=== PATIENT | male | born 1965 | race Caucasian/White ===

== ENCOUNTER 2018-03-16 19:52 | Inpatient (IN) | payer OTHER ==
[2018-03-16 22:07] LABS: ADD MAN DIFF? NO
[2018-03-16 22:09] LABS: BASOPHILS % 0.5 % (0.0-2.0); EOSINOPHILS # 0.2 10^3/ul (0.0-0.5); EOSINOPHILS % 2.6 % (0.0-7.0); HEMATOCRIT 37.4 % (42.0-52.0); HEMOGLOBIN 12.3 g/dl (14.0-18.0); LYMPHOCYTES # 1.7 10^3/ul (0.8-2.9); LYMPHOCYTES % 28.5 % (15.0-51.0); MEAN CORPUSCULAR HEMOGLOBIN 27.2 pg (29.0-33.0); MEAN CORPUSCULAR HGB CONC 32.9 g/dl (32.0-37.0); MEAN CORPUSCULAR VOLUME 82.7 fl (82.0-101.0); MONOCYTE # 0.4 10^3/ul (0.3-0.9); MONOCYTES % 7.5 % (0.0-11.0); NEUTROPHIL # 3.5 10^3/ul (1.6-7.5); NEUTROPHILS % 60.4 % (39.0-77.0); PLATELET COUNT 209 10^3/UL (140-415); RED BLOOD COUNT 4.52 10^6/ul (4.70-6.10); RED CELL DISTRIBUTION WIDTH 12.2 % (11.5-14.5)
[2018-03-16 22:09] LABS: WHITE BLOOD COUNT 5.9 10^3/ul (4.8-10.8)
[2018-03-16] MEDS: SOD CHLORIDE 0.9% 500 ML IV (22:10)
[2018-03-16] MEDS: PIPER-TAZO 3.375 GM IV (PMX) 100 ML IVPB (22:15)
[2018-03-16 22:20] LABS: ADD UMIC YES; UR ASCORBIC ACID NEGATIVE (NEGATIVE); UR BILIRUBIN (Dip) NEGATIVE (NEGATIVE); UR BLOOD (Dip) 1+ mg/dL (NEGATIVE); UR CLARITY CLEAR (CLEAR); UR COLOR COLORLESS (YELLOW); UR GLUCOSE (Dip) 3+ mg/dL (NEGATIVE); UR KETONES (Dip) NEGATIVE (NEGATIVE); UR LEUKOCYTE ESTERASE (Dip) NEGATIVE Leu/ul (NEGATIVE); UR NITRITE (Dip) NEGATIVE (NEGATIVE); UR RBC 0 /HPF (0-5); UR SPECIFIC GRAVITY (Dip) 1.023 (1.003-1.030); UR TOTAL PROTEIN (Dip) NEGATIVE (NEGATIVE); UR UROBILINOGEN (Dip) NEGATIVE (NEGATIVE); UR WBC 0 /HPF (0-5)
[2018-03-16 22:26] LABS: ALANINE AMINOTRANSFERASE 8 IU/L (13-69); ALBUMIN 4.3 g/dl (3.3-4.9); ALBUMIN/GLOBULIN RATIO 0.95; ALKALINE PHOSPHATASE 106 IU/L (42-121); ANION GAP 12 (5-13); ASPARTATE AMINO TRANSFERASE 15 IU/L (15-46); BILIRUBIN,INDIRECT 0.4 mg/dl (0-1.1); BILIRUBIN,TOTAL 0.4 mg/dl (0.2-1.3); BLOOD UREA NITROGEN 36 mg/dl (7-20); CALCIUM 9.5 mg/dl (8.4-10.2); CARBON DIOXIDE 30 mmol/L (21-31); CHLORIDE 95 mmol/L (97-110); CREATININE 1.38 mg/dl (0.61-1.24); Estimated GFR 54 mL/min (>60); LIPASE 149 U/L (23-300); POTASSIUM 5.3 mmol/L (3.5-5.1); SODIUM 137 mmol/L (135-144); TOTAL PROTEIN 8.8 g/dl (6.1-8.1)
[2018-03-16] MEDS ORDERED: morphine 2 MG INJ IV (22:30)
[2018-03-16] MEDS ORDERED: DOCUSATE SODIUM 100 MG CAP PO (22:30)
[2018-03-16] MEDS ORDERED: ONDANSETRON 4 MG INJ IV (22:30)
[2018-03-16] MEDS ORDERED: NACL 0.9% 3 ML SYG IV (22:30)
[2018-03-16] MEDS ORDERED: ACETAMINOPHEN 325 MG TAB PO (22:30)
[2018-03-16] MEDS ORDERED: BISACODYL (EC) 5 MG TAB PO (22:30)
[2018-03-16] MEDS ORDERED: HYDROCODONE/APAP (5/325) TAB PO (22:30)
[2018-03-16 22:34] LABS: GLUCOSE 600 mg/dl (70-220)
[2018-03-16] MEDS: VANCOMYCIN 1 GM (PMX) 250 ML IVPB (23:08)
[2018-03-16] MEDS ORDERED: VANCOMYCIN IV PER PHARMACY XX (23:30)
[2018-03-16] MEDS ORDERED: GLUCAGON 1 MG INJ IM (23:45)
[2018-03-16] MEDS ORDERED: DEXTROSE 50% 50 ML SYRINGE IV ×2 (23:45)
[2018-03-16] MEDS ORDERED: GLUCOSE GEL 15 GRAM TUBE PO ×2 (23:45)
[2018-03-16] MEDS ORDERED: GLUCOSE GEL 15 GRAM TUBE BUCCAL (23:45)
[2018-03-17] MEDS ORDERED: PIPER-TAZO 2.25 GM (PMX) 50 ML IVPB
[2018-03-17] MEDS ORDERED: PIPER-TAZO 3.375 GM IV (PMX) 100 ML IVPB
[2018-03-17] MEDS ORDERED: HEPARIN 5,000 UNIT/0.5 ML VIAL (00:45)
[2018-03-17] MEDS: SOD CHLORIDE 0.9% 1,000 ML IV (00:47)
[2018-03-17] MEDS: HEPARIN 5,000 UNIT/1 ML VIAL SC ×2 (00:48→05:12)
[2018-03-17] MEDS: INSULIN REGULAR, HUMAN 100 UNIT/1 ML 3ML VIAL IV (00:57)
[2018-03-17] MEDS ORDERED: INSULIN GLARGINE [LANTus] (100 UNITS/ML) SYG SC (01:00)
[2018-03-17 01:21] LABS: ERYTHROCYTE SEDIMENTATION RATE 75 mm/Hr (0-20)
[2018-03-17] MEDS: ACCU-CHEK XX ×4 (02:00→21:00)
[2018-03-17] MEDS: hydrALAzine 20 MG INJ IV ×2 (02:40→22:42)
[2018-03-17] MEDS: INSULIN GLARGINE [LANTus] (100 UNITS/ML) SYG SC ×2 (02:41→20:23)
[2018-03-17] MEDS: VANCOMYCIN 1 GM 250 ML IVPB ×2 (05:29→18:26)
[2018-03-17 06:14] LABS: ADD MAN DIFF? NO
[2018-03-17 06:27] LABS: BASOPHILS % 0.6 % (0.0-2.0); EOSINOPHILS # 0.2 10^3/ul (0.0-0.5); EOSINOPHILS % 2.9 % (0.0-7.0); HEMATOCRIT 33.4 % (42.0-52.0); LYMPHOCYTES # 1.7 10^3/ul (0.8-2.9); LYMPHOCYTES % 31.6 % (15.0-51.0); MEAN CORPUSCULAR HEMOGLOBIN 27.3 pg (29.0-33.0); MEAN CORPUSCULAR HGB CONC 32.9 g/dl (32.0-37.0); MEAN CORPUSCULAR VOLUME 82.9 fl (82.0-101.0); MEAN PLATELET VOLUME 10.6 fl (7.4-10.4); MONOCYTE # 0.5 10^3/ul (0.3-0.9); NEUTROPHIL # 2.9 10^3/ul (1.6-7.5); NEUTROPHILS % 55.1 % (39.0-77.0); PLATELET COUNT 198 10^3/UL (140-415); RED BLOOD COUNT 4.03 10^6/ul (4.70-6.10); RED CELL DISTRIBUTION WIDTH 12.3 % (11.5-14.5)
[2018-03-17 06:27] LABS: WHITE BLOOD COUNT 5.3 10^3/ul (4.8-10.8)
[2018-03-17 06:59] LABS: ALANINE AMINOTRANSFERASE 15 IU/L (13-69); ALBUMIN 3.7 g/dl (3.3-4.9); ALBUMIN/GLOBULIN RATIO 0.97; ALKALINE PHOSPHATASE 86 IU/L (42-121); ANION GAP 7 (5-13); ASPARTATE AMINO TRANSFERASE 11 IU/L (15-46); BILIRUBIN,INDIRECT 0.4 mg/dl (0-1.1); BILIRUBIN,TOTAL 0.4 mg/dl (0.2-1.3); BLOOD UREA NITROGEN 28 mg/dl (7-20); CALCIUM 9.1 mg/dl (8.4-10.2); CARBON DIOXIDE 28 mmol/L (21-31); CHLORIDE 104 mmol/L (97-110); CHOL/HDL RATIO 6.4 RATIO; CHOLESTEROL 149 mg/dl (100-200); CREATININE 1.11 mg/dl (0.61-1.24); Estimated GFR > 60 mL/min (>60); GLUCOSE 246 mg/dl (70-220); HDL CHOLESTEROL 23 mg/dl (28-71); LDL CHOLESTEROL,CALCULATED 102 mg/dl; MAGNESIUM 2.1 mg/dl (1.7-2.5); POTASSIUM 4.8 mmol/L (3.5-5.1); SODIUM 139 mmol/L (135-144); TOTAL PROTEIN 7.5 g/dl (6.1-8.1); TRIGLYCERIDES 121 mg/dl (0-149)
[2018-03-17] MEDS: PIPER-TAZO 3.375 GM IV (PMX) 100 ML IVPB (07:58)
[2018-03-17] MEDS: INSULIN ASPART [NOVOLOG] 3 ML PEN SC ×6 (09:54→20:22)
[2018-03-17 10:51] LABS: HEMOGLOBIN A1C 12.1 % (0-5.9)
[2018-03-17] MEDS: LEVOFLOXACIN 500MG/D5W (PMX) 100 ML IVPB (13:04)
[2018-03-17] MEDS: LINAGLIPTIN 5 MG TABLET PO (13:04)
[2018-03-17 22:06] LABS: CREATININE,URINE RANDOM 31.67 mg/dl (20-370)
[2018-03-17 22:07] LABS: SODIUM,URINE RANDOM 52 mmol/L (30-90)
[2018-03-18] MEDS: ACCU-CHEK XX ×4 (02:25→21:00)
[2018-03-18] MEDS: VANCOMYCIN 1 GM 250 ML IVPB ×2 (05:15→18:23)
[2018-03-18] MEDS: INSULIN ASPART [NOVOLOG] 3 ML PEN SC ×7 (08:17→20:41)
[2018-03-18] MEDS: ENOXAPARIN 40 MG/0.4 ML SYG SC (08:52)
[2018-03-18] MEDS: LINAGLIPTIN 5 MG TABLET PO (08:53)
[2018-03-18] MEDS: SODIUM HYPOCHLORITE (1/40) 1 APPLIC BTL IRR (08:55)
[2018-03-18 09:11] LABS: BLOOD UREA NITROGEN 21 mg/dl (7-20)
[2018-03-18 09:11] LABS: CREATININE 1.07 mg/dl (0.61-1.24)
[2018-03-18] MEDS: LEVOFLOXACIN 500MG/D5W (PMX) 100 ML IVPB (11:03)
[2018-03-18] MEDS: AMLODIPINE 5 MG TAB PO (12:30)
[2018-03-18] MEDS: LISINOPRIL 20 MG TAB PO (12:30)
[2018-03-18] MEDS: ASPIRIN (EC) 81 MG TAB PO (12:30)
[2018-03-18] MEDS ORDERED: AMLODIPINE 2.5 MG TAB PO (12:30)
[2018-03-18] MEDS: IODIXANOL LOCM 100 ML BTL (14:06)
[2018-03-18] MEDS: SOD CHLORIDE 0.9% 100 ML (14:06)
[2018-03-18] MEDS: IODIXANOL LOCM 50 ML BTL (14:07)
[2018-03-18] MEDS: SOD CHLORIDE 0.9% 1,000 ML IV (14:55)
[2018-03-18 15:21] LABS: CREATININE, RANDOM URINE 33 mg/dL (20-320); MICROALBUMIN 14.9 mg/dL; MICROALBUMIN/CREATININE RATIO 452 (<30)
[2018-03-18] MEDS ORDERED: morphine LIQ (10 MG/5 ML) CUP PO (16:30)
[2018-03-18 17:49] LABS: VANCOMYCIN,TROUGH 12.2 ug/ml (10.0-20.0)
[2018-03-18 18:55] LABS: C-REACTIVE PROTEIN < 0.5 mg/dl (0.0-0.9)
[2018-03-18 19:34] LABS: ERYTHROCYTE SEDIMENTATION RATE 35 mm/Hr (0-20)
[2018-03-18] MEDS: INSULIN GLARGINE [LANTus] (100 UNITS/ML) SYG SC (20:39)
[2018-03-19] MEDS: ACCU-CHEK XX ×5 (02:00→20:39)
[2018-03-19] MEDS: VANCOMYCIN 1 GM 250 ML IVPB ×2 (05:21→17:47)
[2018-03-19 06:53] LABS: ADD MAN DIFF? NO
[2018-03-19 06:59] LABS: BASOPHILS % 0.3 % (0.0-2.0); EOSINOPHILS # 0.2 10^3/ul (0.0-0.5); EOSINOPHILS % 2.3 % (0.0-7.0); HEMATOCRIT 34.6 % (42.0-52.0); HEMOGLOBIN 11.4 g/dl (14.0-18.0); LYMPHOCYTES # 1.8 10^3/ul (0.8-2.9); LYMPHOCYTES % 26.9 % (15.0-51.0); MEAN CORPUSCULAR HEMOGLOBIN 27.7 pg (29.0-33.0); MEAN CORPUSCULAR HGB CONC 32.9 g/dl (32.0-37.0); MEAN CORPUSCULAR VOLUME 84.2 fl (82.0-101.0); MEAN PLATELET VOLUME 9.9 fl (7.4-10.4); MONOCYTE # 0.5 10^3/ul (0.3-0.9); MONOCYTES % 7.2 % (0.0-11.0); NEUTROPHIL # 4.1 10^3/ul (1.6-7.5); NEUTROPHILS % 62.2 % (39.0-77.0); PLATELET COUNT 195 10^3/UL (140-415); RED BLOOD COUNT 4.11 10^6/ul (4.70-6.10); RED CELL DISTRIBUTION WIDTH 12.5 % (11.5-14.5)
[2018-03-19 06:59] LABS: WHITE BLOOD COUNT 6.6 10^3/ul (4.8-10.8)
[2018-03-19 07:40] LABS: ANION GAP 10 (5-13); BLOOD UREA NITROGEN 18 mg/dl (7-20); CALCIUM 9.3 mg/dl (8.4-10.2); CARBON DIOXIDE 27 mmol/L (21-31); CHLORIDE 101 mmol/L (97-110); CREATININE 1.07 mg/dl (0.61-1.24); Estimated GFR > 60 mL/min (>60); GLUCOSE 148 mg/dl (70-220); MAGNESIUM 1.9 mg/dl (1.7-2.5); PHOSPHORUS 4.4 mg/dl (2.5-4.9); POTASSIUM 4.1 mmol/L (3.5-5.1); SODIUM 138 mmol/L (135-144)
[2018-03-19] MEDS: INSULIN ASPART [NOVOLOG] 3 ML PEN SC ×7 (08:00→20:34)
[2018-03-19] MEDS: LINAGLIPTIN 5 MG TABLET PO (08:45)
[2018-03-19] MEDS: ASPIRIN (EC) 81 MG TAB PO (08:45)
[2018-03-19] MEDS: LISINOPRIL 20 MG TAB PO (08:45)
[2018-03-19] MEDS: AMLODIPINE 5 MG TAB PO (08:45)
[2018-03-19] MEDS: SODIUM HYPOCHLORITE (1/40) 1 APPLIC BTL IRR (08:46)
[2018-03-19] MEDS: ENOXAPARIN 40 MG/0.4 ML SYG SC (08:46)
[2018-03-19] MEDS: LEVOFLOXACIN 500MG/D5W (PMX) 100 ML IVPB (10:24)
[2018-03-19 15:27] LABS: CREATININE, RANDOM URINE 33 mg/dL (20-320); MICROALBUMIN 15.2 mg/dL; MICROALBUMIN/CREATININE RATIO 461 (<30)
[2018-03-19] MEDS: INSULIN GLARGINE [LANTus] (100 UNITS/ML) SYG SC (20:36)
[2018-03-20] MEDS: ACCU-CHEK XX ×5 (02:00→21:00)
[2018-03-20] MEDS ORDERED: LEVOFLOXACIN 500 MG TAB (04:06)
[2018-03-20] MEDS: VANCOMYCIN 1 GM 250 ML IVPB ×2 (05:51→18:07)
[2018-03-20] MEDS: LEVOFLOXACIN 500 MG TAB PO (05:51)
[2018-03-20] MEDS: INSULIN ASPART [NOVOLOG] 3 ML PEN SC ×7 (08:00→20:40)
[2018-03-20] MEDS: AMLODIPINE 10 MG TAB PO (08:21)
[2018-03-20] MEDS: ASPIRIN (EC) 81 MG TAB PO (08:21)
[2018-03-20] MEDS: LINAGLIPTIN 5 MG TABLET PO (08:22)
[2018-03-20] MEDS: LISINOPRIL 20 MG TAB PO ×2 (08:22→20:49)
[2018-03-20] MEDS: ENOXAPARIN 40 MG/0.4 ML SYG SC (08:25)
[2018-03-20] MEDS: SODIUM HYPOCHLORITE (1/40) 1 APPLIC BTL IRR (08:32)
[2018-03-20] MEDS ORDERED: LISINOPRIL 20 MG TAB PO ×2 (09:00)
[2018-03-20] MEDS: INSULIN GLARGINE [LANTus] (100 UNITS/ML) SYG SC (20:42)
[2018-03-21] MEDS: ACCU-CHEK XX ×5 (02:00→21:50)
[2018-03-21 05:43] LABS: ADD MAN DIFF? NO
[2018-03-21 05:47] LABS: BASOPHILS % 0.5 % (0.0-2.0); EOSINOPHILS # 0.2 10^3/ul (0.0-0.5); EOSINOPHILS % 2.9 % (0.0-7.0); HEMATOCRIT 34.2 % (42.0-52.0); HEMOGLOBIN 11.1 g/dl (14.0-18.0); LYMPHOCYTES # 1.9 10^3/ul (0.8-2.9); LYMPHOCYTES % 30.1 % (15.0-51.0); MEAN CORPUSCULAR HEMOGLOBIN 27.3 pg (29.0-33.0); MEAN CORPUSCULAR HGB CONC 32.5 g/dl (32.0-37.0); MEAN CORPUSCULAR VOLUME 84.2 fl (82.0-101.0); MEAN PLATELET VOLUME 10.1 fl (7.4-10.4); MONOCYTE # 0.5 10^3/ul (0.3-0.9); MONOCYTES % 8.1 % (0.0-11.0); NEUTROPHIL # 3.6 10^3/ul (1.6-7.5); NEUTROPHILS % 57.4 % (39.0-77.0); PLATELET COUNT 203 10^3/UL (140-415); RED BLOOD COUNT 4.06 10^6/ul (4.70-6.10); RED CELL DISTRIBUTION WIDTH 12.8 % (11.5-14.5)
[2018-03-21 05:47] LABS: WHITE BLOOD COUNT 6.3 10^3/ul (4.8-10.8)
[2018-03-21 06:27] LABS: ANION GAP 10 (5-13); BLOOD UREA NITROGEN 20 mg/dl (7-20); CALCIUM 9.1 mg/dl (8.4-10.2); CARBON DIOXIDE 28 mmol/L (21-31); CHLORIDE 103 mmol/L (97-110); CREATININE 1.17 mg/dl (0.61-1.24); Estimated GFR > 60 mL/min (>60); GLUCOSE 120 mg/dl (70-220); PHOSPHORUS 4.9 mg/dl (2.5-4.9); POTASSIUM 4.1 mmol/L (3.5-5.1); SODIUM 141 mmol/L (135-144)
[2018-03-21] MEDS: VANCOMYCIN 1 GM 250 ML IVPB ×2 (06:47→16:20)
[2018-03-21] MEDS: INSULIN ASPART [NOVOLOG] 3 ML PEN SC ×7 (07:59→20:30)
[2018-03-21] MEDS: ASPIRIN (EC) 81 MG TAB PO (08:01)
[2018-03-21] MEDS: LINAGLIPTIN 5 MG TABLET PO (08:01)
[2018-03-21] MEDS: ENOXAPARIN 40 MG/0.4 ML SYG SC (08:01)
[2018-03-21] MEDS: LISINOPRIL 20 MG TAB PO ×2 (08:03→20:25)
[2018-03-21] MEDS: AMLODIPINE 10 MG TAB PO (08:04)
[2018-03-21] MEDS: SODIUM HYPOCHLORITE (1/40) 1 APPLIC BTL IRR (09:21)
[2018-03-21] MEDS: hydrALAzine 20 MG INJ IV (12:32)
[2018-03-21] MEDS: LIDOCAINE 1% (MPF) 5 ML VIAL SC (15:22)
[2018-03-21] MEDS: INSULIN GLARGINE [LANTus] (100 UNITS/ML) SYG SC (20:31)
== END 2018-03-21 21:30 | disposition home health service (06) | DRG 623 ==
LOC: PP2 22:01 → FTE 19:52
PROVIDERS: Family Medicine
PROC: 0JBQ0ZZ Excision of Right Foot Subcutaneous Tissue and Fascia, Open Approach (ICD-10-PCS; principal; 2018-03-17)
DX: E11.621 Type 2 diabetes mellitus with foot ulcer (principal); L03.115 Cellulitis of right lower limb; N17.9 Acute kidney failure, unspecified; E66.9 Obesity, unspecified; Z91.14 Patient's other noncompliance with medication regimen; I10 Essential (primary) hypertension; Z68.30 Body mass index [BMI] 30.0-30.9, adult; E11.42 Type 2 diabetes mellitus with diabetic polyneuropathy; L84 Corns and callosities; B95.62 Methicillin resistant Staphylococcus aureus infection as the cause of diseases classified elsewhere; B95.4 Other streptococcus as the cause of diseases classified elsewhere; E55.9 Vitamin D deficiency, unspecified; E78.5 Hyperlipidemia, unspecified; E11.65 Type 2 diabetes mellitus with hyperglycemia; E11.51 Type 2 diabetes mellitus with diabetic peripheral angiopathy without gangrene
CPT/HCPCS: 36415; 36569; 71045; 73630; 73630-LT; 73706; 73718; 76937; 80048; 80053; 80061; 80202; 81001; 81003; 82043; 82306; 82565; 82652; 82962; 83036; 83690; 83735; 84100; 84155; 84300; 84443; 84520; 85025; 85651; 86140; 87040; 87070; 93922; 99285-25

== ENCOUNTER 2018-03-26 11:30 | Emergency (ER) | payer OTHER | END 2018-03-26 13:56 | disposition home or self-care (01) | LOC: FTE 11:30 | DX: T82.898A Other specified complication of vascular prosthetic devices, implants and grafts, initial encounter (principal); Y82.8 Other medical devices associated with adverse incidents; Z79.4 Long term (current) use of insulin; Z79.82 Long term (current) use of aspirin | CPT/HCPCS: 99281; Z7502 ==

== ENCOUNTER 2018-10-28 14:36 | Day surgery (SDC) | payer OTHER ==
[2018-10-28] MEDS: CEFAZOLIN 2 GM/50 ML (PMX) 50 ML IVPB (06:00)
[2018-10-28] MEDS ORDERED: SOD CHLORIDE 0.9% 1,000 ML IV (16:00)
[2018-10-28] MEDS ORDERED: FENTAnyl 50 MCG/ML VIAL IV ×2 (17:00)
[2018-10-28] MEDS ORDERED: OXYCODONE/ACETAMINOPHEN (5/325) TAB PO (17:00)
[2018-10-28] MEDS ORDERED: HYDROmorphONE 1 MG/5 ML IV SYRINGE IV ×2 (17:00)
[2018-10-28] MEDS ORDERED: hydrALAzine 20 MG INJ IV (17:00)
[2018-10-28] MEDS ORDERED: METOCLOPRAMIDE 10 MG INJ IV (17:00)
[2018-10-28] MEDS ORDERED: LABETALOL HCL 20MG INJ IV (17:00)
[2018-10-28] MEDS ORDERED: EPHEDrine 25 MG/5 ML SYG IV (17:00)
[2018-10-28] MEDS ORDERED: CEFAZOLIN 1 GM INJ (17:01)
[2018-10-28] MEDS ORDERED: PROPOFOL 20 ML ×2 (17:01→17:21)
[2018-10-28] MEDS ORDERED: ROPIVACAINE 0.5 % 30 ML VIAL (17:01)
[2018-10-28] MEDS ORDERED: FENTAnyl 50 MCG/ML VIAL (17:01)
[2018-10-28] MEDS ORDERED: MIDAZOLAM 1 MG/ML 2 ML INJ (17:01)
[2018-10-28] MEDS ORDERED: ONDANSETRON 4 MG INJ (17:20)
[2018-10-28] MEDS ORDERED: KETOROLAC 30 MG INJ (17:20)
[2018-10-28] MEDS ORDERED: METOCLOPRAMIDE 10 MG INJ (17:20)
[2018-10-28] MEDS ORDERED: DEXAMETHASONE 4 MG/ML 5 ML INJ (17:20)
[2018-10-28] MEDS: POLYMYXIN/BACITRACIN 1L IRRIG (17:23)
[2018-10-28] MEDS ORDERED: DEXTROSE 50% 50 ML SYRINGE (18:06)
[2018-10-28] MEDS: DEXTROSE 50% 50 ML SYRINGE IV (18:09)
[2018-10-28] MEDS: ONDANSETRON 4 MG INJ IV (18:45)
== END 2018-10-28 19:19 | disposition home or self-care (01) ==
LOC: SDS 14:36
DX: E11.621 Type 2 diabetes mellitus with foot ulcer (principal); M20.11 Hallux valgus (acquired), right foot; M19.071 Primary osteoarthritis, right ankle and foot; E11.42 Type 2 diabetes mellitus with diabetic polyneuropathy; I10 Essential (primary) hypertension; E78.5 Hyperlipidemia, unspecified; Z79.4 Long term (current) use of insulin; Z79.82 Long term (current) use of aspirin
CPT/HCPCS: 14040; 73620; 82962; 87070; 88305

== ENCOUNTER 2018-11-26 10:39 | Inpatient (IN) | payer OTHER ==
[2018-11-26 13:16] LABS: ADD MAN DIFF? NO
[2018-11-26] MEDS: KETOROLAC 15 MG INJ IV (13:20)
[2018-11-26] MEDS: SOD CHLORIDE 0.9% 500 ML IV (13:20)
[2018-11-26] MEDS: PIPER-TAZO 3.375 GM IV (PMX) 100 ML IVPB ×2 (13:20→20:54)
[2018-11-26 13:21] LABS: BASOPHILS % 0.3 % (0.0-2.0); EOSINOPHILS # 0.1 10^3/ul (0.0-0.5); EOSINOPHILS % 0.6 % (0.0-7.0); HEMOGLOBIN 11.3 g/dl (14.0-18.0); LYMPHOCYTES # 1.9 10^3/ul (0.8-2.9); LYMPHOCYTES % 17.6 % (15.0-51.0); MEAN CORPUSCULAR HGB CONC 33.2 g/dl (32.0-37.0); MEAN CORPUSCULAR VOLUME 87.2 fl (82.0-101.0); MEAN PLATELET VOLUME 10.5 fl (7.4-10.4); MONOCYTE # 1.4 10^3/ul (0.3-0.9); MONOCYTES % 13.2 % (0.0-11.0); NEUTROPHIL # 7.4 10^3/ul (1.6-7.5); NEUTROPHILS % 67.7 % (39.0-77.0); PLATELET COUNT 175 10^3/UL (140-415)
[2018-11-26 13:21] LABS: WHITE BLOOD COUNT 10.9 10^3/ul (4.8-10.8)
[2018-11-26 13:38] LABS: ALANINE AMINOTRANSFERASE 23 IU/L (13-69); ALBUMIN 4.2 g/dl (3.3-4.9); ALBUMIN/GLOBULIN RATIO 1.05; ALKALINE PHOSPHATASE 86 IU/L (42-121); ANION GAP 9 (5-13); ASPARTATE AMINO TRANSFERASE 16 IU/L (15-46); BILIRUBIN,INDIRECT 0.7 mg/dl (0-1.1); BILIRUBIN,TOTAL 0.7 mg/dl (0.2-1.3); CARBON DIOXIDE 27 mmol/L (21-31); CHLORIDE 100 mmol/L (97-110); CREATININE 1.46 mg/dl (0.61-1.24); Estimated GFR 50 mL/min (>60); GLUCOSE 205 mg/dl (70-220); LIPASE 15 U/L (23-300); POTASSIUM 4.4 mmol/L (3.5-5.1); SODIUM 136 mmol/L (135-144); TOTAL PROTEIN 8.2 g/dl (6.1-8.1)
[2018-11-26 13:41] LABS: BLOOD UREA NITROGEN 23 mg/dl (7-20); CALCIUM 9.5 mg/dl (8.4-10.2)
[2018-11-26 13:42] LABS: INR 1.06; PROTIME 13.9 Sec (11.9-14.9); PT RATIO 1.1
[2018-11-26 13:43] LABS: PARTIAL THROMBOPLASTIN TIME 34.5 Sec (23.0-35.0)
[2018-11-26] MEDS: VANCOMYCIN 1 GM (PMX) 250 ML IVPB (14:29)
[2018-11-26] MEDS ORDERED: MAGNESIUM HYDROXIDE 30ML CUP PO (15:30)
[2018-11-26] MEDS ORDERED: ONDANSETRON 4 MG INJ IV (15:30)
[2018-11-26] MEDS ORDERED: ALBUTEROL/IPRATROPIUM (NEB) 3 ML AMP HHN (15:30)
[2018-11-26] MEDS ORDERED: NACL 0.9% 3 ML SYG IV (15:30)
[2018-11-26] MEDS ORDERED: NITROGLYCERIN (SL) 0.4 MG TAB SL (15:30)
[2018-11-26] MEDS ORDERED: VANCOMYCIN IV PER PHARMACY XX (15:30)
[2018-11-26] MEDS ORDERED: HYDROCODONE/APAP (5/325) TAB PO (15:30)
[2018-11-26] MEDS ORDERED: DOCUSATE SODIUM 100 MG CAP PO (15:30)
[2018-11-26] MEDS ORDERED: morphine 2 MG INJ IV (15:30)
[2018-11-26] MEDS ORDERED: LORAZEPAM 2 MG INJ IV (15:30)
[2018-11-26] MEDS ORDERED: ACETAMINOPHEN 325 MG TAB PO (15:30)
[2018-11-26] MEDS ORDERED: hydrALAzine 20 MG INJ IV (15:30)
[2018-11-26 16:28] LABS: INR 1.15; PROTIME 14.8 Sec (11.9-14.9); PT RATIO 1.2
[2018-11-26 16:29] LABS: PARTIAL THROMBOPLASTIN TIME 39.2 Sec (23.0-35.0)
[2018-11-26 16:35] LABS: LACTIC ACID 0.7 mmol/L (0.5-2.0)
[2018-11-26 16:45] LABS: FREE T4 (FREE THYROXINE) 1.05 ng/dl (0.64-1.79)
[2018-11-26] MEDS: INSULIN ASPART [NOVOLOG] 3 ML PEN SC ×2 (17:00→20:55)
[2018-11-26] MEDS: SOD CHLORIDE 0.45% 1,000 ML IV (17:57)
[2018-11-26] MEDS: VANCOMYCIN 1 GM in 250 ML IVPB (17:58)
[2018-11-26 20:05] LABS: LACTIC ACID 0.8 mmol/L (0.5-2.0)
[2018-11-26] MEDS: ACCU-CHEK XX (20:31)
[2018-11-26] MEDS ORDERED: INSULIN GLARGINE [LANtus] 3 ML PEN SC (21:00)
[2018-11-26] MEDS ORDERED: PENDING SANTYL ORDER FOR WOUND CARE XX (21:00)
[2018-11-26] MEDS: HEPARIN 5,000 UNIT/1 ML VIAL SC (21:06)
[2018-11-26 21:19] LABS: ADD UMIC YES; UR ASCORBIC ACID 40 mg/dL (NEGATIVE); UR BILIRUBIN (Dip) NEGATIVE (NEGATIVE); UR BLOOD (Dip) NEGATIVE (NEGATIVE); UR CLARITY CLEAR (CLEAR); UR COLOR YELLOW (YELLOW); UR GLUCOSE (Dip) NEGATIVE (NEGATIVE); UR KETONES (Dip) NEGATIVE (NEGATIVE); UR LEUKOCYTE ESTERASE (Dip) NEGATIVE Leu/ul (NEGATIVE); UR NITRITE (Dip) NEGATIVE (NEGATIVE); UR RBC 1 /HPF (0-5); UR SPECIFIC GRAVITY (Dip) 1.012 (1.003-1.030); UR TOTAL PROTEIN (Dip) 1+ mg/dl (NEGATIVE); UR UROBILINOGEN (Dip) NEGATIVE (NEGATIVE); UR WBC 0 /HPF (0-5)
[2018-11-26 21:30] LABS: CREATININE,URINE RANDOM 78.43 mg/dl (20-370)
[2018-11-26 21:30] LABS: SODIUM,URINE RANDOM 99 mmol/L (30-90)
[2018-11-26] MEDS: INSULIN GLARGINE [LANTus] (100 UNITS/ML) SYG SC (21:35)
[2018-11-27] MEDS: INSULIN ASPART [NOVOLOG] 3 ML PEN SC ×6 (01:00→21:00)
[2018-11-27] MEDS: PIPER-TAZO 3.375 GM IV (PMX) 100 ML IVPB ×5 (01:02→23:54)
[2018-11-27 03:40] LABS: ADD MAN DIFF? NO
[2018-11-27 03:58] LABS: HEMOGLOBIN A1C 7.1 % (0-5.9)
[2018-11-27 04:01] LABS: BASOPHILS % 0.3 % (0.0-2.0); EOSINOPHILS # 0.2 10^3/ul (0.0-0.5); HEMATOCRIT 30.6 % (42.0-52.0); HEMOGLOBIN 10.1 g/dl (14.0-18.0); LYMPHOCYTES # 1.6 10^3/ul (0.8-2.9); LYMPHOCYTES % 20.8 % (15.0-51.0); MEAN CORPUSCULAR HEMOGLOBIN 28.6 pg (29.0-33.0); MEAN CORPUSCULAR VOLUME 86.7 fl (82.0-101.0); MEAN PLATELET VOLUME 10.4 fl (7.4-10.4); MONOCYTE # 0.9 10^3/ul (0.3-0.9); NEUTROPHIL # 4.9 10^3/ul (1.6-7.5); NEUTROPHILS % 64.4 % (39.0-77.0); PLATELET COUNT 162 10^3/UL (140-415); RED BLOOD COUNT 3.53 10^6/ul (4.70-6.10); RED CELL DISTRIBUTION WIDTH 11.9 % (11.5-14.5)
[2018-11-27 04:01] LABS: WHITE BLOOD COUNT 7.5 10^3/ul (4.8-10.8)
[2018-11-27 04:03] LABS: ANION GAP 7 (5-13); BLOOD UREA NITROGEN 17 mg/dl (7-20); CALCIUM 8.9 mg/dl (8.4-10.2); CARBON DIOXIDE 26 mmol/L (21-31); CHLORIDE 105 mmol/L (97-110); CREATININE 1.17 mg/dl (0.61-1.24); Estimated GFR > 60 mL/min (>60); GLUCOSE 105 mg/dl (70-220); PHOSPHORUS 3.7 mg/dl (2.5-4.9); POTASSIUM 4.1 mmol/L (3.5-5.1); SODIUM 138 mmol/L (135-144)
[2018-11-27 04:03] LABS: LACTIC ACID 0.6 mmol/L (0.5-2.0)
[2018-11-27 04:04] LABS: CHOLESTEROL 149 mg/dl (100-200)
[2018-11-27 04:04] LABS: CHOL/HDL RATIO 6.2 RATIO; HDL CHOLESTEROL 24 mg/dl (28-71); LDL CHOLESTEROL,CALCULATED 100 mg/dl; TRIGLYCERIDES 124 mg/dl (0-149)
[2018-11-27 04:33] LABS: THYROID STIMULATING HORMONE 0.756 MIU/L (0.465-4.680)
[2018-11-27] MEDS: SOD CHLORIDE 0.45% 1,000 ML IV (06:12)
[2018-11-27 06:51] LABS: LACTIC ACID 1.5 mmol/L (0.5-2.0)
[2018-11-27] MEDS: VANCOMYCIN 1 GM 250 ML IVPB ×3 (06:51→19:57)
[2018-11-27] MEDS: AMLODIPINE 10 MG TAB PO (08:31)
[2018-11-27] MEDS: HEPARIN 5,000 UNIT/1 ML VIAL SC ×2 (10:28→21:32)
[2018-11-27] MEDS: NPH, HUMAN INSULIN ISOPHANE 3ML VIAL SC (10:46)
[2018-11-27 12:11] LABS: LACTIC ACID 1.2 mmol/L (0.5-2.0)
[2018-11-27] MEDS: DEXTROSE 5%-0.45% NACL 1,000 ML IV (12:28)
[2018-11-27] MEDS ORDERED: FENTAnyl 50 MCG/ML VIAL (17:18)
[2018-11-27] MEDS ORDERED: MIDAZOLAM 1 MG/ML 2 ML INJ (17:18)
[2018-11-27] MEDS ORDERED: LIDOCAINE 2% (SDV) 5 ML INJ (17:57)
[2018-11-27] MEDS ORDERED: CEFAZOLIN 1 GM INJ (17:57)
[2018-11-27] MEDS ORDERED: PROPOFOL 20 ML (17:57)
[2018-11-27] MEDS ORDERED: DIPHENHYDRAMINE 50 MG INJ IV (18:30)
[2018-11-27] MEDS ORDERED: ONDANSETRON 4 MG INJ IV (18:30)
[2018-11-27] MEDS ORDERED: MEPERIDINE 25 MG INJ IV (18:30)
[2018-11-27] MEDS ORDERED: HYDROmorphONE 1 MG/5 ML IV SYRINGE IV ×2 (18:30)
[2018-11-27] MEDS ORDERED: FENTAnyl 50 MCG/ML VIAL IV (18:30)
[2018-11-27] MEDS: INSULIN GLARGINE [LANTus] (100 UNITS/ML) SYG SC ×2 (21:00→23:47)
[2018-11-28] MEDS: DEXTROSE 5%-0.45% NACL 1,000 ML IV (01:20)
[2018-11-28] MEDS: ACCU-CHEK XX (02:00)
[2018-11-28] MEDS: PIPER-TAZO 3.375 GM IV (PMX) 100 ML IVPB (05:51)
[2018-11-28 05:54] LABS: ADD MAN DIFF? NO
[2018-11-28 05:57] LABS: BASOPHILS % 0.4 % (0.0-2.0); EOSINOPHILS # 0.2 10^3/ul (0.0-0.5); EOSINOPHILS % 3.2 % (0.0-7.0); HEMATOCRIT 34.7 % (42.0-52.0); LYMPHOCYTES # 1.7 10^3/ul (0.8-2.9); LYMPHOCYTES % 23.8 % (15.0-51.0); MEAN CORPUSCULAR HEMOGLOBIN 27.9 pg (29.0-33.0); MEAN CORPUSCULAR HGB CONC 31.7 g/dl (32.0-37.0); MEAN CORPUSCULAR VOLUME 88.1 fl (82.0-101.0); MEAN PLATELET VOLUME 10.1 fl (7.4-10.4); MONOCYTE # 0.9 10^3/ul (0.3-0.9); MONOCYTES % 12.2 % (0.0-11.0); NEUTROPHIL # 4.2 10^3/ul (1.6-7.5); NEUTROPHILS % 60.1 % (39.0-77.0); PLATELET COUNT 207 10^3/UL (140-415); RED BLOOD COUNT 3.94 10^6/ul (4.70-6.10); RED CELL DISTRIBUTION WIDTH 12.1 % (11.5-14.5)
[2018-11-28 06:23] LABS: ANION GAP 10 (5-13); BLOOD UREA NITROGEN 11 mg/dl (7-20); CALCIUM 9.6 mg/dl (8.4-10.2); CARBON DIOXIDE 27 mmol/L (21-31); CHLORIDE 106 mmol/L (97-110); CREATININE 1.32 mg/dl (0.61-1.24); Estimated GFR 56 mL/min (>60); GLUCOSE 162 mg/dl (70-220); POTASSIUM 4.2 mmol/L (3.5-5.1); SODIUM 143 mmol/L (135-144)
[2018-11-28 07:19] LABS: VANCOMYCIN,TROUGH 15.6 ug/ml (10.0-20.0)
[2018-11-28] MEDS: INSULIN ASPART [NOVOLOG] 3 ML PEN SC ×4 (08:32→21:23)
[2018-11-28] MEDS: NPH, HUMAN INSULIN ISOPHANE 3ML VIAL SC (08:33)
[2018-11-28] MEDS: AMLODIPINE 10 MG TAB PO (09:43)
[2018-11-28] MEDS: VANCOMYCIN 1 GM 250 ML IVPB (10:02)
[2018-11-28] MEDS: HEPARIN 5,000 UNIT/1 ML VIAL SC ×2 (10:04→21:22)
[2018-11-28] MEDS: CLINDAMYCIN 900 MG (PMX) 50 ML IVPB ×2 (14:09→21:19)
[2018-11-28 15:22] LABS: CREATININE, RANDOM URINE 78 mg/dL (20-320); MICROALBUMIN 21.8 mg/dL; MICROALBUMIN/CREATININE RATIO 279 (<30)
[2018-11-28] MEDS: INSULIN GLARGINE [LANTus] (100 UNITS/ML) SYG SC (21:22)
[2018-11-29] MEDS: ACCU-CHEK XX (02:00)
[2018-11-29] MEDS: CLINDAMYCIN 900 MG (PMX) 50 ML IVPB ×3 (05:06→22:50)
[2018-11-29 06:42] LABS: ADD MAN DIFF? NO
[2018-11-29 07:03] LABS: WHITE BLOOD COUNT 4.1 10^3/ul (4.8-10.8)
[2018-11-29 07:03] LABS: EOSINOPHILS # 0.2 10^3/ul (0.0-0.5); EOSINOPHILS % 4.8 % (0.0-7.0); HEMOGLOBIN 10.4 g/dl (14.0-18.0); LYMPHOCYTES # 1.5 10^3/ul (0.8-2.9); LYMPHOCYTES % 35.7 % (15.0-51.0); MEAN CORPUSCULAR HEMOGLOBIN 28.4 pg (29.0-33.0); MEAN CORPUSCULAR HGB CONC 32.5 g/dl (32.0-37.0); MEAN CORPUSCULAR VOLUME 87.4 fl (82.0-101.0); MEAN PLATELET VOLUME 9.9 fl (7.4-10.4); MONOCYTE # 0.6 10^3/ul (0.3-0.9); MONOCYTES % 13.3 % (0.0-11.0); NEUTROPHIL # 1.8 10^3/ul (1.6-7.5); NEUTROPHILS % 44.5 % (39.0-77.0); PLATELET COUNT 180 10^3/UL (140-415); RED BLOOD COUNT 3.66 10^6/ul (4.70-6.10)
[2018-11-29 07:28] LABS: ANION GAP 7 (5-13); BLOOD UREA NITROGEN 16 mg/dl (7-20); CALCIUM 9.5 mg/dl (8.4-10.2); CARBON DIOXIDE 28 mmol/L (21-31); CHLORIDE 105 mmol/L (97-110); CREATININE 1.23 mg/dl (0.61-1.24); Estimated GFR > 60 mL/min (>60); GLUCOSE 135 mg/dl (70-220); POTASSIUM 3.8 mmol/L (3.5-5.1); SODIUM 140 mmol/L (135-144)
[2018-11-29] MEDS: AMLODIPINE 10 MG TAB PO (08:20)
[2018-11-29] MEDS: INSULIN ASPART [NOVOLOG] 3 ML PEN SC ×4 (08:22→20:23)
[2018-11-29] MEDS: HEPARIN 5,000 UNIT/1 ML VIAL SC ×2 (08:22→20:21)
[2018-11-29] MEDS: NPH, HUMAN INSULIN ISOPHANE 3ML VIAL SC (10:15)
[2018-11-29] MEDS ORDERED: GLUCAGON 1 MG INJ IM (13:00)
[2018-11-29] MEDS ORDERED: GLUCOSE GEL 15 GRAM TUBE PO ×2 (13:00)
[2018-11-29] MEDS ORDERED: DEXTROSE 50% 50 ML SYRINGE IV ×2 (13:00)
[2018-11-29] MEDS ORDERED: GLUCOSE GEL 15 GRAM TUBE BUCCAL (13:00)
[2018-11-29] MEDS: INSULIN GLARGINE [LANTus] (100 UNITS/ML) SYG SC (20:22)
[2018-11-30] MEDS: ACCU-CHEK XX (02:00)
[2018-11-30] MEDS: CLINDAMYCIN 900 MG (PMX) 50 ML IVPB (05:32)
[2018-11-30 05:50] LABS: ADD MAN DIFF? NO
[2018-11-30 05:55] LABS: WHITE BLOOD COUNT 4.3 10^3/ul (4.8-10.8)
[2018-11-30 05:55] LABS: BASOPHILS % 0.9 % (0.0-2.0); EOSINOPHILS # 0.2 10^3/ul (0.0-0.5); EOSINOPHILS % 4.4 % (0.0-7.0); HEMOGLOBIN 10.3 g/dl (14.0-18.0); LYMPHOCYTES # 1.5 10^3/ul (0.8-2.9); LYMPHOCYTES % 35.4 % (15.0-51.0); MEAN CORPUSCULAR HEMOGLOBIN 28.4 pg (29.0-33.0); MEAN CORPUSCULAR HGB CONC 32.2 g/dl (32.0-37.0); MEAN CORPUSCULAR VOLUME 88.2 fl (82.0-101.0); MEAN PLATELET VOLUME 9.8 fl (7.4-10.4); MONOCYTE # 0.5 10^3/ul (0.3-0.9); MONOCYTES % 10.8 % (0.0-11.0); NEUTROPHILS % 47.6 % (39.0-77.0); PLATELET COUNT 211 10^3/UL (140-415); RED BLOOD COUNT 3.63 10^6/ul (4.70-6.10); RED CELL DISTRIBUTION WIDTH 11.9 % (11.5-14.5)
[2018-11-30 06:16] LABS: ANION GAP 6 (5-13); BLOOD UREA NITROGEN 24 mg/dl (7-20); CALCIUM 9.5 mg/dl (8.4-10.2); CARBON DIOXIDE 31 mmol/L (21-31); CHLORIDE 102 mmol/L (97-110); CREATININE 1.26 mg/dl (0.61-1.24); Estimated GFR 59 mL/min (>60); GLUCOSE 132 mg/dl (70-220); POTASSIUM 4.2 mmol/L (3.5-5.1); SODIUM 139 mmol/L (135-144)
[2018-11-30] MEDS: AMLODIPINE 10 MG TAB PO (09:00)
[2018-11-30] MEDS: HEPARIN 5,000 UNIT/1 ML VIAL SC ×2 (09:02→21:18)
[2018-11-30] MEDS: INSULIN ASPART [NOVOLOG] 3 ML PEN SC ×4 (09:04→21:00)
[2018-11-30] MEDS: NPH, HUMAN INSULIN ISOPHANE 3ML VIAL SC (11:16)
[2018-11-30] MEDS: DAPTOMYCIN 600 MG in SOD CHLORIDE 0.9% 100 ML IVPB (16:37)
[2018-11-30] MEDS: INSULIN GLARGINE [LANTus] (100 UNITS/ML) SYG SC (21:18)
[2018-12-01] MEDS: ACCU-CHEK XX (02:00)
[2018-12-01 05:03] LABS: ADD MAN DIFF? NO
[2018-12-01 05:08] LABS: BASOPHILS % 0.5 % (0.0-2.0); EOSINOPHILS # 0.3 10^3/ul (0.0-0.5); EOSINOPHILS % 3.8 % (0.0-7.0); HEMATOCRIT 34.5 % (42.0-52.0); HEMOGLOBIN 11.4 g/dl (14.0-18.0); LYMPHOCYTES # 2.2 10^3/ul (0.8-2.9); LYMPHOCYTES % 32.8 % (15.0-51.0); MEAN CORPUSCULAR HEMOGLOBIN 28.6 pg (29.0-33.0); MEAN CORPUSCULAR VOLUME 86.7 fl (82.0-101.0); MEAN PLATELET VOLUME 9.7 fl (7.4-10.4); MONOCYTE # 0.6 10^3/ul (0.3-0.9); NEUTROPHIL # 3.5 10^3/ul (1.6-7.5); NEUTROPHILS % 52.2 % (39.0-77.0); PLATELET COUNT 221 10^3/UL (140-415); RED BLOOD COUNT 3.98 10^6/ul (4.70-6.10); RED CELL DISTRIBUTION WIDTH 12.1 % (11.5-14.5)
[2018-12-01 05:08] LABS: WHITE BLOOD COUNT 6.6 10^3/ul (4.8-10.8)
[2018-12-01 05:29] LABS: ANION GAP 8 (5-13); BLOOD UREA NITROGEN 27 mg/dl (7-20); CALCIUM 9.6 mg/dl (8.4-10.2); CARBON DIOXIDE 28 mmol/L (21-31); CHLORIDE 102 mmol/L (97-110); CREATININE 1.22 mg/dl (0.61-1.24); Estimated GFR > 60 mL/min (>60); GLUCOSE 134 mg/dl (70-220); POTASSIUM 4.2 mmol/L (3.5-5.1); SODIUM 138 mmol/L (135-144)
[2018-12-01 05:30] LABS: CREATINE KINASE 29 IU/L (23-200)
[2018-12-01] MEDS: INSULIN ASPART [NOVOLOG] 3 ML PEN SC ×4 (08:00→20:35)
[2018-12-01] MEDS: AMLODIPINE 10 MG TAB PO (08:21)
[2018-12-01] MEDS: NPH, HUMAN INSULIN ISOPHANE 3ML VIAL SC (08:24)
[2018-12-01] MEDS: HEPARIN 5,000 UNIT/1 ML VIAL SC ×2 (08:26→20:35)
[2018-12-01] MEDS: DAPTOMYCIN 600 MG in SOD CHLORIDE 0.9% 100 ML IVPB (13:04)
[2018-12-01] MEDS: INSULIN GLARGINE [LANTus] (100 UNITS/ML) SYG SC (20:34)
[2018-12-02] MEDS: ACCU-CHEK XX (02:00)
[2018-12-02 05:06] LABS: ADD MAN DIFF? NO
[2018-12-02 05:08] LABS: WHITE BLOOD COUNT 7.2 10^3/ul (4.8-10.8)
[2018-12-02 05:08] LABS: BASOPHILS % 0.4 % (0.0-2.0); EOSINOPHILS # 0.2 10^3/ul (0.0-0.5); EOSINOPHILS % 2.9 % (0.0-7.0); HEMATOCRIT 32.9 % (42.0-52.0); HEMOGLOBIN 10.6 g/dl (14.0-18.0); LYMPHOCYTES # 2.1 10^3/ul (0.8-2.9); MEAN CORPUSCULAR HEMOGLOBIN 28.5 pg (29.0-33.0); MEAN CORPUSCULAR HGB CONC 32.2 g/dl (32.0-37.0); MEAN CORPUSCULAR VOLUME 88.4 fl (82.0-101.0); MEAN PLATELET VOLUME 9.7 fl (7.4-10.4); MONOCYTE # 0.6 10^3/ul (0.3-0.9); MONOCYTES % 8.6 % (0.0-11.0); NEUTROPHIL # 4.2 10^3/ul (1.6-7.5); NEUTROPHILS % 57.8 % (39.0-77.0); PLATELET COUNT 223 10^3/UL (140-415); RED BLOOD COUNT 3.72 10^6/ul (4.70-6.10)
[2018-12-02 06:11] LABS: ANION GAP 6 (5-13); BLOOD UREA NITROGEN 34 mg/dl (7-20); CALCIUM 9.5 mg/dl (8.4-10.2); CARBON DIOXIDE 29 mmol/L (21-31); CHLORIDE 102 mmol/L (97-110); CREATININE 1.49 mg/dl (0.61-1.24); Estimated GFR 49 mL/min (>60); GLUCOSE 131 mg/dl (70-220); POTASSIUM 4.3 mmol/L (3.5-5.1); SODIUM 137 mmol/L (135-144)
[2018-12-02 06:19] LABS: MAGNESIUM 2.2 mg/dl (1.7-2.5)
[2018-12-02] MEDS: INSULIN ASPART [NOVOLOG] 3 ML PEN SC ×4 (08:00→21:00)
[2018-12-02] MEDS: AMLODIPINE 10 MG TAB PO (09:05)
[2018-12-02] MEDS: HEPARIN 5,000 UNIT/1 ML VIAL SC ×2 (09:15→21:29)
[2018-12-02] MEDS: NPH, HUMAN INSULIN ISOPHANE 3ML VIAL SC (09:15)
[2018-12-02] MEDS: DAPTOMYCIN 600 MG in SOD CHLORIDE 0.9% 100 ML IVPB (12:43)
[2018-12-02] MEDS: DAKINS 0.0125%(1/40) 473 ML SOLUTION TP (15:17)
[2018-12-02] MEDS: INSULIN GLARGINE [LANTus] (100 UNITS/ML) SYG SC (21:29)
[2018-12-03] MEDS: ACCU-CHEK XX (02:00)
[2018-12-03 06:19] LABS: ADD MAN DIFF? NO
[2018-12-03 06:24] LABS: BASOPHIL # 0.1 10^3/ul (0.0-0.1); BASOPHILS % 0.8 % (0.0-2.0); EOSINOPHILS # 0.2 10^3/ul (0.0-0.5); EOSINOPHILS % 3.2 % (0.0-7.0); HEMATOCRIT 33.8 % (42.0-52.0); HEMOGLOBIN 10.7 g/dl (14.0-18.0); LYMPHOCYTES # 2.1 10^3/ul (0.8-2.9); LYMPHOCYTES % 31.3 % (15.0-51.0); MEAN CORPUSCULAR HEMOGLOBIN 27.9 pg (29.0-33.0); MEAN CORPUSCULAR HGB CONC 31.7 g/dl (32.0-37.0); MEAN CORPUSCULAR VOLUME 88.3 fl (82.0-101.0); MEAN PLATELET VOLUME 9.9 fl (7.4-10.4); MONOCYTE # 0.5 10^3/ul (0.3-0.9); MONOCYTES % 7.9 % (0.0-11.0); NEUTROPHIL # 3.7 10^3/ul (1.6-7.5); NEUTROPHILS % 55.3 % (39.0-77.0); PLATELET COUNT 223 10^3/UL (140-415); RED BLOOD COUNT 3.83 10^6/ul (4.70-6.10); RED CELL DISTRIBUTION WIDTH 12.4 % (11.5-14.5)
[2018-12-03 06:24] LABS: WHITE BLOOD COUNT 6.6 10^3/ul (4.8-10.8)
[2018-12-03 06:59] LABS: PHOSPHORUS 5.3 mg/dl (2.5-4.9)
[2018-12-03 06:59] LABS: MAGNESIUM 2.3 mg/dl (1.7-2.5)
[2018-12-03 07:00] LABS: ANION GAP 7 (5-13); BLOOD UREA NITROGEN 37 mg/dl (7-20); CALCIUM 9.6 mg/dl (8.4-10.2); CARBON DIOXIDE 28 mmol/L (21-31); CHLORIDE 104 mmol/L (97-110); Estimated GFR 53 mL/min (>60); GLUCOSE 97 mg/dl (70-220); POTASSIUM 4.2 mmol/L (3.5-5.1); SODIUM 139 mmol/L (135-144)
[2018-12-03] MEDS: INSULIN ASPART [NOVOLOG] 3 ML PEN SC ×4 (08:00→20:57)
[2018-12-03] MEDS: AMLODIPINE 10 MG TAB PO (08:24)
[2018-12-03] MEDS: NPH, HUMAN INSULIN ISOPHANE 3ML VIAL SC (08:27)
[2018-12-03] MEDS: HEPARIN 5,000 UNIT/1 ML VIAL SC ×2 (08:27→20:57)
[2018-12-03] MEDS: DAKINS 0.0125%(1/40) 473 ML SOLUTION TP (08:28)
[2018-12-03] MEDS: DAPTOMYCIN 600 MG in SOD CHLORIDE 0.9% 100 ML IVPB (12:44)
[2018-12-03] MEDS: INSULIN GLARGINE [LANTus] (100 UNITS/ML) SYG SC (20:56)
[2018-12-04] MEDS: ACCU-CHEK XX (02:00)
[2018-12-04 05:23] LABS: ADD MAN DIFF? NO
[2018-12-04 05:31] LABS: WHITE BLOOD COUNT 8.2 10^3/ul (4.8-10.8)
[2018-12-04 05:31] LABS: BASOPHIL # 0.1 10^3/ul (0.0-0.1); BASOPHILS % 0.6 % (0.0-2.0); EOSINOPHILS # 0.2 10^3/ul (0.0-0.5); EOSINOPHILS % 2.9 % (0.0-7.0); HEMATOCRIT 33.1 % (42.0-52.0); HEMOGLOBIN 10.7 g/dl (14.0-18.0); LYMPHOCYTES # 2.6 10^3/ul (0.8-2.9); LYMPHOCYTES % 31.6 % (15.0-51.0); MEAN CORPUSCULAR HEMOGLOBIN 28.6 pg (29.0-33.0); MEAN CORPUSCULAR HGB CONC 32.3 g/dl (32.0-37.0); MEAN CORPUSCULAR VOLUME 88.5 fl (82.0-101.0); MEAN PLATELET VOLUME 10.1 fl (7.4-10.4); MONOCYTE # 0.7 10^3/ul (0.3-0.9); MONOCYTES % 8.3 % (0.0-11.0); NEUTROPHIL # 4.5 10^3/ul (1.6-7.5); PLATELET COUNT 228 10^3/UL (140-415); RED BLOOD COUNT 3.74 10^6/ul (4.70-6.10); RED CELL DISTRIBUTION WIDTH 12.1 % (11.5-14.5)
[2018-12-04 05:43] LABS: MAGNESIUM 2.2 mg/dl (1.7-2.5)
[2018-12-04 05:43] LABS: PHOSPHORUS 5.1 mg/dl (2.5-4.9)
[2018-12-04 05:57] LABS: ANION GAP 8 (5-13); BLOOD UREA NITROGEN 43 mg/dl (7-20); CALCIUM 9.5 mg/dl (8.4-10.2); CARBON DIOXIDE 26 mmol/L (21-31); CHLORIDE 103 mmol/L (97-110); CREATININE 1.36 mg/dl (0.61-1.24); Estimated GFR 54 mL/min (>60); GLUCOSE 126 mg/dl (70-220); POTASSIUM 4.2 mmol/L (3.5-5.1); SODIUM 137 mmol/L (135-144)
[2018-12-04] MEDS: INSULIN ASPART [NOVOLOG] 3 ML PEN SC ×4 (08:00→20:21)
[2018-12-04] MEDS: AMLODIPINE 10 MG TAB PO (08:12)
[2018-12-04] MEDS: HEPARIN 5,000 UNIT/1 ML VIAL SC ×2 (08:14→20:37)
[2018-12-04] MEDS: NPH, HUMAN INSULIN ISOPHANE 3ML VIAL SC (08:14)
[2018-12-04] MEDS: DAKINS 0.0125%(1/40) 473 ML SOLUTION TP (08:16)
[2018-12-04] MEDS: DAPTOMYCIN 600 MG in SOD CHLORIDE 0.9% 100 ML IVPB (13:06)
[2018-12-04] MEDS: INSULIN GLARGINE [LANTus] (100 UNITS/ML) SYG SC (20:24)
== END 2018-12-04 22:30 | disposition home health service (06) | DRG 629 ==
LOC: 2NE 11-29 15:38 → E/R 10:39 → 2NE 14:53
PROC: 0QBQ0ZZ Excision of Right Toe Phalanx, Open Approach (ICD-10-PCS; principal; 2018-11-27 17:17)
DX: E11.621 Type 2 diabetes mellitus with foot ulcer (principal); L02.611 Cutaneous abscess of right foot; M86.171 Other acute osteomyelitis, right ankle and foot; M86.671 Other chronic osteomyelitis, right ankle and foot; N17.9 Acute kidney failure, unspecified; E11.42 Type 2 diabetes mellitus with diabetic polyneuropathy; L97.519 Non-pressure chronic ulcer of other part of right foot with unspecified severity; I10 Essential (primary) hypertension; E78.5 Hyperlipidemia, unspecified; B95.62 Methicillin resistant Staphylococcus aureus infection as the cause of diseases classified elsewhere; L03.031 Cellulitis of right toe; D64.9 Anemia, unspecified; Z79.4 Long term (current) use of insulin; Z79.82 Long term (current) use of aspirin
CPT/HCPCS: 36415; 36573; 71045; 73630; 73718; 80048; 80053; 80061; 80202; 81001; 81003; 82043; 82306; 82550; 82652; 82962; 83036; 83605; 83690; 83735; 84100; 84155; 84300; 84439; 84443; 85025; 85610; 85730; 87040-91; 87070; 87075; 87102; 88304; 88311; 96365; 96375; 97161; 97166; 99285-25